=== PATIENT | male | born 1985 | race Caucasian/White ===

== ENCOUNTER 2018-07-04 05:45 | Emergency (ER) | payer SELFPAY ==
[~2018-07-04] VITALS: Ht 177.8 cm; Wt 91.0 kg
[2018-07-04 05:49] VITALS: BP 140/98
== END 2018-07-04 06:06 | disposition left against medical advice (07) ==
LOC: ER 05:45
DX: Z53.21 Procedure and treatment not carried out due to patient leaving prior to being seen by health care provider (principal)